=== PATIENT | male | born 2000 | race Two or more races ===

== ENCOUNTER 2023-06-30 04:27 | Emergency (ER) | payer MEDICAID, SELFPAY ==
--- NOTE | 2023-06-30 | ECG_ITS ---
Test Reason : CHEST PAIN Blood Pressure : / mmHG Vent. Rate : 097 BPM Atrial Rate : 097 BPM P-R Int : 134 ms QRS Dur : 090 ms QT Int : 352 ms P-R-T Axes : 050 039 015 degrees QTc Int : 447 ms Normal sinus rhythm with sinus arrhythmia Normal ECG No previous ECGs available Referred By: Generic ED Physician Electronically Signed By:HAYDER WOODARD
--- NOTE | ~2023-06-30 | XR_ITS ---
EXAMINATION: XR CHEST CLINICAL INFORMATION: Chest discomfort, shortness of breath COMPARISON: None available. TECHNIQUE: 2 views of the chest were obtained. FINDINGS: The lungs are clear with no focal consolidation. No evidence of pneumothorax, pulmonary edema, or pleural effusions. The cardiomediastinal silhouette is unremarkable. No acute osseous findings. XR/XR chest 2V IMPRESSION: No acute cardiopulmonary findings.
[2023-06-30 04:33] VITALS: BP 129/82; PULSE 86; RESP 20; TEMP 37.1; O2SAT 100; BMI 25.8
--- NOTE | 2023-06-30 04:41 | PC.NURSE ---
In radiology for chest xray at this time. Patient & Mother state that he stutters at baseline, but it gets worse when he is anxious.
--- NOTE | 2023-06-30 04:49 | MHC.EDTECH ---
Patient changed into hospital attire,placed on the playground monitor,family at bedside and call garcia in reach
--- NOTE | 2023-06-30 05:02 | MHC.EDTECH ---
Labs,sars/flu/rsv obatiend and sent to lab.
[2023-06-30 05:03] LABS: MANUAL DIFF FLAG NO
[2023-06-30 05:04] LABS: Basophils Percent Auto 0.3 % (0-2); Eosinophils Absolute Auto 0.1 X10*3/uL (0.0-0.4); Eosinophils Percent Auto 1.1 % (0-4); Hematocrit 43.9 % (42.0-52.0); Hemoglobin 15.9 g/dl (14.0-18.0); Imm Gran Abs Auto 0.02 X10*3/uL (0.00-0.03); Imm Gran Pct Auto 0.2 % (0.0-0.4); Lymphocytes Absolute Auto 2.4 X10*3/uL (1.2-4.9); Lymphocytes Percent Auto 26.3 % (20-40); Mean Corpuscular HGB Conc 36.2 g/dl (31.0-36.0); Mean Corpuscular Hemoglobin 31.5 pg (27.0-33.0); Mean Corpuscular Volume 86.9 fL (80.0-98.0); Mean Platelet Volume 12.1 fL (9.4-12.4); Monocytes Absolute Auto 0.6 X10*3/uL (0.1-1.2); Monocytes Percent Auto 6.3 % (2-11); Neutrophils Absolute Auto 5.9 x10*3/uL (2.0-8.3); Neutrophils Percent Auto 65.8 % (45-73); Platelet Count 215 X10*3/uL (160-400); Red Blood Count 5.05 X10*6/uL (4.60-5.80)
[2023-06-30 05:24] LABS: Anion Gap 14 (12-20); Blood Urea Nitrogen 11 mg/dL (9-16); Calcium 9.9 mg/dL (8.4-10.2); Carbon Dioxide 22 mmol/L (22-29); Chloride 107 mmol/L (96-108); Creatinine Clr Calc Pharmacy 107.5; Estimated Glomerular Filt Rate > 60; Glucose Random 107 mg/dL (60-115); Potassium 2.9 mmol/L (3.3-5.1); Sodium 140 mmol/L (135-145)
--- NOTE | 2023-06-30 05:24 | PC.NURSE ---
Telephone call received from lab with critical level of potassium 2.9. Dr. Cook notified.
[2023-06-30 05:26] LABS: Troponin-I High Sensitivity < 2.7 ng/L (<3.5-35.0)
[2023-06-30 05:40] LABS: Influenza A PCR NEGATIVE (Negative); Influenza B PCR NEGATIVE (Negative); Resp Syncy Virus RNA Qual PCR NEGATIVE (Negative); SARS COV2 PCR INHOUSE NEGATIVE (Negative)
[2023-06-30] MEDS: Potassium Chloride Packet 20 MEQ PACKET 40 MEQ PO (05:46)
[2023-06-30 05:56] VITALS: BP 122/77; PULSE 80; RESP 16; TEMP 36.8; O2SAT 98
--- NOTE | 2023-06-30 06:50 | ED.SOB ---
HPI - SOB/Dyspnea General Chief Complaint: Dyspnea Stated Complaint: chest pain, sob, lungs hurt Time Seen by Provider: 06/30/23 06:50 Source: patient and family Mode of arrival: ambulatory Limitations: no limitations History of Present Illness HPI Narrative: 23 yo male with no known medical history here with complaints of episodes of shortness of breath, chest tightness since 06/25. Patient reports these episodes occur at rest and with movement and are not worsened with deep breathing, palpation, coughing. He has no associated cough, fever, leg swelling, leg pain, vomiting, diarrhea. No recent travel. No sick contact. Patient reports feeling very anxious, having associated palpitations. Can not recall any specific stressors. He reports he does have a history of anxiety but does not currently taking any medication for this. He does not have a therapist. Denies any SI or HI. Mom is bedside and she denies any family history of sudden cardiac or coronary artery disease. He does smoke cigarettes and vapes. Reports occasional alcohol use. No substance use. Related Data Previous Rx's ?Medication ?Instructions ?Recorded hydroxyzine HCl 25 mg tablet 25 mg PO QID PRN anxiety #20 tabs 06/30/23 potassium chloride 20 mEq 20 meq PO DAILY #7 tabs 06/30/23 tablet,extended release Allergies Allergy/AdvReac Type Severity Reaction Status Date / Time cat dander [cats] Allergy Sneezing Verified 06/30/23 04:37 dog dander [dogs] Allergy Sneezing Verified 06/30/23 04:37 Review of Systems Review of Systems: Yes all other systems are reviewed and are negative Constitutional: Constitutional: Reports no additional constitutional complaints, Denies body ache(s), Denies chills, Denies fever(s), Denies headache(s) and Denies weakness Eyes: Eyes: Reports no additional eye complaints and Denies change in vision ENT: Reports system reviewed and no additional complaints, except as documented, Denies dizziness, Denies headache(s), Denies nasal congestion, Denies nasal discharge and Denies neck pain Cardiovascular: Cardiovascular: Reports no additional cardiovascular complaints, Reports chest pain, Denies leg edema, Reports palpitations and Reports dyspnea Respiratory: Respiratory: Reports no additional respiratory complaints, Denies cough and Reports dyspnea Gastrointestinal: Gastrointestinal: Reports no additional gastrointestinal complaints, Denies abdominal pain, Denies diarrhea, Denies nausea and Denies vomiting Genitourinary: Genitourinary: Denies urinary incontinence Musculoskeletal: Musculoskeletal: Reports no additional musculoskeletal complaints, Denies back pain, Denies arthralgias, Denies joint swelling, Denies neck pain, Denies numbness and Denies tingling Integumentary/Breasts: Skin/Breast: Reports system reviewed and no additional complaints, except as docu and Denies rash Neurologic: Reports system reviewed and no additional complaints, except as documented, Denies Abnormal speech present, Denies dizziness, Denies headache(s), Denies numbness, Denies tingling and Denies weakness Psychiatric: Psychiatric: Reports anxiety Endocrine: Endocrine: Reports palpitations PMFSH Past Medical History Attestation statement: The following information was validated with the patient. Source: old records reviewed and nursing notes reviewed Social History Social History Alcohol intake: current Alcohol type: beer, wine and hard liquor Smoked in Last 30 Days: No Use of substances other than those prescribed or required for medical reasons: No Advance Directives: No Advance Directives Information Provided: No Physical Exam Vital Signs: Vital Signs: Last Vital Signs Temp 98.3 F 06/30/23 09:12 Pulse 70 06/30/23 09:12 Resp 20 06/30/23 09:12 BP 105/69 06/30/23 09:12 Pulse Ox 97 06/30/23 09:12 O2 Del Method Room Air 06/30/23 09:12 BMI result Body Mass Index 25.8 Const: General: cooperative, healthy appearing, comfortable and no acute distress Orientation/consciousness: patient oriented x3 Limitations: no limitations HEENT: Head: Yes normal to inspection Ears: hearing grossly normal bilaterally General nose exam: Normal external nose present Face and sinus: Yes normal facial exam Mouth: Normal oral and palatal mucosa present Throat: Yes posterior oropharynx normal Eyes: General: appearance normal, both eyes and all related structures Pupils: Equal, round and reactive pupils present Neck: Neck: Yes normal visual inspection Chest: Chest palpation & inspection: normal inspection of the chest Resp: Effort & Inspection: normal respiratory effort Auscultation: clear to auscultation bilaterally Cardio: Rate: regular rate Rhythm: regular rhythm Peripheral pulses: Peripheral pulses 2+ throughout GI: Inspection: Yes normal to inspection Palpation (GI): Soft to palpation and nontender Auscultation: normal bowel sounds Back/Spine/Pelvis: Thoracic/Lumbar Spine: thoracic and lumbar spine normal to inspection Skin: General skin exam: no rashes or lesions noted Neuro: General: patient oriented x3, no focal motor deficits and normal sensation to monofilament Cranial nerves: Yes Equal, round and reactive pupils present Cognition (Neuro): normal cognition Speech: No Abnormal speech present Gait exam (Neuro): Normal gait present Motor exam (neuro): 5/5 motor strength present throughout Extrem: General: Yes normal to inspection, Yes no pedal edema and Yes no calf tenderness Course Course Course Narrative: Repeat labs are improved. Patient feels improved overall. Plan for discharge home with outpatient follow-up. Reviewed worrisome signs and symptoms when to return to the emergency room. Comfortable plan for discharge home Medications Administered Discontinued Medications Generic Name Dose Route Start Last Admin Trade Name Freq PRN Reason Stop Dose Admin Hydroxyzine HCl 50 mg 06/30/23 07:02 06/30/23 07:32 Hydroxyzine Hcl 50 Mg Tablet PO 06/30/23 07:03 50 mg ONCE ONE Administration Sodium Chloride 1,000 mls @ 999 mls/hr 06/30/23 07:02 06/30/23 09:14 Ns IV 06/30/23 08:02 Infused .Q1H1M STA Infusion Potassium Chloride 10 meq in 100 mls @ 100 mls/hr 06/30/23 07:02 06/30/23 08:38 Potassium Chloride/H20 IV 06/30/23 08:01 Infused ONCE ONE Infusion Potassium Chloride 40 meq 06/30/23 05:34 06/30/23 05:46 Potassium Chloride Packet 20 Meq Packet PO 06/30/23 05:35 40 meq ONCE ONE Administration Medical Decision Making Medical Decision Making MDM Narrative: 23 yo male with no known medical history here with complaints of episodes of shortness of breath, chest tightness since 06/25.? Patient reports these episodes occur at rest and with movement and are not worsened with deep breathing, palpation, coughing.? He has no associated cough, fever, leg swelling, leg pain, vomiting, diarrhea.? No recent travel.? No sick contact.? Patient reports feeling very anxious, having associated palpitations.? Can not recall any specific stressors.? He reports he does have a history of anxiety but does not currently taking any medication for this.? He does not have a therapist.? Denies any SI or HI.? Mom is bedside and she denies any family history of sudden cardiac or coronary artery disease. He does smoke cigarettes and vapes.? Reports occasional alcohol use.? No substance use. Exam is benign although patient appears quite anxious VSS WIll obtain labs, EKG, CXR, viral testing Give PO atarax Differential Diagnosis Differential Diagnoses: The differential diagnosis associated with the presentation includes Low suspicion for PE with perc score 0 Low suspicion for ACS with symptoms for several days with nonischemic EKG and negative troponin Low suspicion for aortic dissection with gradual onset of symptoms. Admission/Observation Consideration of admission/observation: Escalation of care including admission/observation considered Heart score 0-no need for admission for further management Lab Data MDM Lab Attestation statement: I reviewed the patient's lab results. 06/30/23 04:56 06/30/23 09:11 Labs: Lab Results 06/30/23 06/30/23 06/30/23 Range/Units 04:55 04:56 09:11 WBC 9.0 (4.8-10.8) X10*3/uL RBC 5.05 (4.60-5.80) X10*6/uL Hgb 15.9 (14.0-18.0) g/dl Hct 43.9 (42.0-52.0) % MCV 86.9 (80.0-98.0) fL MCH 31.5 (27.0-33.0) pg MCHC 36.2 H (31.0-36.0) g/dl RDW 12.0 (11.0-16.0) % Plt Count 215 (160-400) X10*3/uL MPV 12.1 (9.4-12.4) fL Immature Gran % (Auto) 0.2 (0.0-0.4) % Neut % (Auto) 65.8 (45-73) % Lymph % (Auto) 26.3 (20-40) % Flagler % (Auto) 6.3 (2-11) % Eos % (Auto) 1.1 (0-4) % Baso % (Auto) 0.3 (0-2) % Lymph # (Auto) 2.4 (1.2-4.9) X10*3/uL Flagler # (Auto) 0.6 (0.1-1.2) X10*3/uL Eos # (Auto) 0.1 (0.0-0.4) X10*3/uL Baso # (Auto) 0.0 (0.0-0.2) X10*3/uL Abs Immat Gran (auto) 0.02 (0.00-0.03) X10*3/uL Absolute Neuts (auto) 5.9 (2.0-8.3) x10*3/uL Absolute Nucleated RBC 0.000 (0.0-0.012) X10*3/uL Nucleated RBC % (auto) 0.0 (0.0-0.2) /100WBC Sodium 140 143 (135-145) mmol/L Potassium 2.9 L* 3.4 (3.3-5.1) mmol/L Chloride 107 113 H (96-108) mmol/L Carbon Dioxide 22 23 (22-29) mmol/L Anion Gap 14 10 L (12-20) BUN 11 9 (9-16) mg/dL Creatinine 0.98 0.80 (0.5-1.4) mg/dL Estim Creat Clear Calc 107.5 131.8 Estimated GFR > 60 > 60 Random Glucose 107 95 (60-115) mg/dL Calcium 9.9 8.6 D (8.4-10.2) mg/dL Magnesium 1.6 (1.6-2.6) mg/dL Total Bilirubin 0.6 (0.0-1.0) mg/dL Direct Bilirubin 0.2 (0.0-0.5) mg/dL AST 17 (5-37) U/L ALT 17 (0-40) U/L Alkaline Phosphatase 71 (39-117) U/L Troponin I High Sens < 2.7 (<3.5-35.0) ng/L Total Protein 7.8 (6.5-8.0) g/dL Albumin 4.7 (3.5-5.0) g/dL TSH 4.20 H (0.32-4.0) uIU/mL Free T4 1.12 (0.71-1.85) ng/dL Influenza Type A (PCR) NEGATIVE (Negative) Influenza Type B (PCR) NEGATIVE (Negative) RSV RNA Qual (PCR) NEGATIVE (Negative) SARS-CoV-2 RNA (RT-PCR) NEGATIVE (Negative) Independent Interpretation I performed an independent interpretation of an: EKG and Plain X-Ray Interpretation: I independently reviewed the chest x-ray and agree with the radiology report Independently reviewed the EKG which shows normal sinus rhythm. Normal OR. Normal QRS normal QT Radiology Impression Discussion of test interpretation with radiology: I have reviewed the radiologist's reading. Radiologist Impression: [address] [address] XRay Report Signed Patient: Dileep Villalpando MR#: [id number] : 2000 Acct:[id number] Age/Sex: 23 / M ADM Date: 06/30/23 Loc: .ED Attending Dr: Ordering Physician: Generic ED Physician Date of Service: 06/30/23 Procedure(s): XR chest 2V Accession Number(s): [id number] cc: Generic ED Physician; Physician,Unknown ~ EXAMINATION: XR CHEST CLINICAL INFORMATION: Chest discomfort, shortness of breath COMPARISON: None available. TECHNIQUE: 2 views of the chest were obtained. FINDINGS: The lungs are clear with no focal consolidation. No evidence of pneumothorax, pulmonary edema, or pleural effusions. The cardiomediastinal silhouette is unremarkable. No acute osseous findings. XR/XR chest 2V IMPRESSION: No acute cardiopulmonary findings. Independent Historian Clinical information obtained from an independent historian. History obtained from or confirmed by: Parent Discharge Plan Discharge Clinical Impression: Chest pain, Acute hypokalemia Patient Disposition: Home, Self-Care Instructions: Chest Pain (ED), Hypokalemia (ED) Additional Instructions: Your lab work shows that your potassium was mildly decreased. You did receive replacement both by mouth and through your IV for this. Your repeat levels were normal. Your additional blood work was normal. Your EKG is normal. Your chest x-ray is normal. We do recommend that he follow up outpatient with primary care doctor as you may need additional testing done. Please return for any worsening symptoms. Prescriptions: New potassium chloride 20 mEq tablet extended release 20 meq PO DAILY Qty: 7 0RF hydroxyzine HCl 25 mg tablet 25 mg PO QID PRN (Reason: anxiety) Qty: 20 0RF Referrals: Physician,Unknown J [Primary Care Provider] - 1 week Print Language: Kinyarwanda
[2023-06-30 07:22] LABS: Alanine Aminotransferase 17 U/L (0-40); Albumin Level 4.7 g/dL (3.5-5.0); Alkaline Phosphatase 71 U/L (39-117); Aspartate Amino Transferase 17 U/L (5-37); Bilirubin Direct 0.2 mg/dL (0.0-0.5); Bilirubin Total 0.6 mg/dL (0.0-1.0); Magnesium 1.6 mg/dL (1.6-2.6); Total Protein 7.8 g/dL (6.5-8.0)
[2023-06-30] MEDS: 0.9 % Sodium Chloride 1,000 ML 999 ML IV (07:29)
[2023-06-30] MEDS: hydrOXYzine HCL 50 MG TABLET PO (07:32)
[2023-06-30] MEDS: Potassium Chloride/H20 10 MEQ/100 ML PIGGYBACK 100 MEQ IV (07:32)
[2023-06-30 08:08] VITALS: BP 119/71; PULSE 81; RESP 26; TEMP 36.7; O2SAT 100
[2023-06-30 08:47] LABS: Free T4 (Free Thyroxine) 1.12 ng/dL (0.71-1.85)
--- NOTE | 2023-06-30 09:02 | PC.NURSE ---
assumed care of pt at 0700, resting quietly, 1L NS running, IV potassium given, plan for repeat labs after fluids. tech aware. pt reports feeling slightly better.
[2023-06-30 09:12] VITALS: BP 105/69; PULSE 70; RESP 20; TEMP 36.8; O2SAT 97
[2023-06-30 09:35] LABS: Anion Gap 10 (12-20); Blood Urea Nitrogen 9 mg/dL (9-16); Calcium 8.6 mg/dL (8.4-10.2); Carbon Dioxide 23 mmol/L (22-29); Chloride 113 mmol/L (96-108); Creatinine Clr Calc Pharmacy 131.8; Estimated Glomerular Filt Rate > 60; Glucose Random 95 mg/dL (60-115); Potassium 3.4 mmol/L (3.3-5.1); Sodium 143 mmol/L (135-145)
[2023-06-30 09:55] VITALS: BP 105/69; PULSE 70; RESP 20; TEMP 36.8; O2SAT 97
== END 2023-06-30 09:55 | disposition home or self-care (01) ==
PROVIDERS: Emergency Medicine Emergency Medical Services; Nurse Practitioner Family; Emergency Provider Emergency Medicine
DX: R07.89 Other chest pain (principal); E87.6 Hypokalemia; R06.02 Shortness of breath; R07.81 Pleurodynia; R11.0 Nausea; Z11.52 Encounter for screening for COVID-19; Z20.822 Contact with and (suspected) exposure to COVID-19; Z79.899 Other long term (current) drug therapy
CPT/HCPCS: 0241U; 36415; 71046; 80048; 80076; 83735; 84439; 84443; 84484; 85025; 93005; 96361; 96374; 99284; 99285; J3480

== ENCOUNTER → 2023-06-30 04:29 | Outpatient (BNV) | payer MEDICAID, SELFPAY | PROVIDERS: Emergency Provider Emergency Medicine; Visit Provider Internal Medicine | DX: R07.9 Chest pain, unspecified (principal) | CPT/HCPCS: 93010 ==

== ENCOUNTER 2024-01-27 17:40 | Outpatient (REF) | payer MEDICAID, SELFPAY ==
[2024-01-28 06:18] LABS: CT PCR NOT DETECTED (Not Detect.); NG PCR NOT DETECTED (Not Detect.)
== END 2024-01-27 17:41 | disposition home or self-care (01) ==
LOC: HO.HHCLNP 17:40
PROVIDERS: Visit Provider Nurse Practitioner Family
DX: Z00.00 Encounter for general adult medical examination without abnormal findings (principal)
CPT/HCPCS: 87491; 87591

== ENCOUNTER 2024-09-18 18:11 | Emergency (ER) | payer MEDICAID, SELFPAY ==
--- NOTE | ~2024-09-18 | XR_ITS ---
CLINICAL HISTORY: shortness of breath 2 view chest x-ray Comparison: Chest x-ray from 06/30/2023 Findings: No consolidation or effusion. No pneumothorax. Imaged mediastinum and imaged osseous structures appear unchanged. IMPRESSION: No consolidation. This document has been electronically signed by: Mike Palafox MD on 09/18/2024 19:58:17
[2024-09-18 18:25] VITALS: BP 116/63; PULSE 80; RESP 16; TEMP 36.3; O2SAT 100; BMI 25.1
--- NOTE | 2024-09-18 18:37 | ED_ITS ---
HPI - General Adult General Chief complaint: Upper Respiratory Symptoms Stated complaint: difficulty breathing Time Seen by Provider: 09/18/24 20:10 Source: patient, family and RN notes reviewed Mode of arrival: ambulatory Limitations: no limitations History of Present Illness ED Provider: Alejandra CASTRO narrative: 24-year-old male with past medical history significant for anxiety noncompliant with Zoloft presents for evaluation of shortness of breath. Patient reports his symptoms got worse yesterday. He reports waking up yesterday morning with shortness of breath in the middle of the night. He reports that he wants to be for a little while to come himself down because he reported feeling anxious as well. Denies any fevers, chills, cough. He reports some tightness in his chest with deep breathing. He has been treating in anxiety was overall in the past but stopped a few months ago as she was feeling better Related Data Previous Rx's ?Medication ?Instructions ?Recorded hydroxyzine HCl 25 mg tablet 25 mg PO QID PRN anxiety #20 tabs 06/30/23 potassium chloride 20 mEq 20 meq PO DAILY #7 tabs 06/10 04/03 tablet,extended release Allergies Allergy/AdvReac Type Severity Reaction Status Date / Time cat dander (cats) Allergy Sneezing Verified 09/18/24 18:29 dog dander (dogs) Allergy Sneezing Verified 09/18/24 18:29 Review of Systems Constitutional: Constitutional: Denies body ache(s), Denies chills and Denies fever(s) Eyes: Eyes: Denies blurry vision ENT: Denies vertigo, Denies dizziness and Denies dry mouth Cardiovascular: Cardiovascular: Denies chest pain and Reports dyspnea Respiratory: Respiratory: Denies change in phlegm color, Denies chest congestion, Denies cough, Denies hemoptysis, Denies excessive phlegm production, Reports pain on inspiration, Reports dyspnea and Denies wheezing Gastrointestinal: Gastrointestinal: Denies abdominal pain Musculoskeletal: Musculoskeletal: Denies back pain Integumentary/Breasts: Skin/Breast: Denies rash Neurologic: Denies vertigo and Denies dizziness Psychiatric: Psychiatric: Reports anxiety, Denies depression, Denies homicidal ideation and Denies suicidal ideation Allergic/Immunologic: Allergic/Immunologic: Denies wheezing PMFSH Social History Social History Alcohol intake: current Alcohol type: beer, wine and hard liquor Advance Directives: No Advance Directives Information Provided: No Do you have a plan to hurt others: No Plan Physical Exam ED Vital Signs: Vital Signs - 24 hr 09/18/24 18:25 Temperature 97.4 F Pulse Rate 80 Respiratory Rate 16 Blood Pressure 116/63 Pulse Oximetry 100 Oxygen Delivery Method Room Air BMI result Body Mass Index 25.1 Const General: healthy appearing, comfortable, no acute distress, alert and awake Nutritional Appearance: well nourished Orientation/consciousness: patient oriented x3 HENMT Head: Yes normocephalic and Yes atraumatic Eyes Eyelids: Yes eyelids normal Conjunctivae: conjunctivae normal Sclerae: sclerae normal Corneas: corneas normal Pupils: Equal, round and reactive pupils present EOM: EOMs intact bilaterally Neck Neck: Yes full ROM Resp Effort & Inspection: normal respiratory effort, able to speak in complete sentences, no audible wheezes and not labored Auscultation: clear to auscultation bilaterally Cardio Rate: regular rate Rhythm: regular rhythm GI Inspection: No distended Palpation (GI): Soft to palpation, not firm, nontender, no guarding and not rigid Skin General skin exam: elasticity normal Neuro General: patient oriented x3 Cranial nerves: Yes Equal, round and reactive pupils present and Yes Bilaterally intact EOM present Cognition (Neuro): normal cognition Extrem Other: Moving all extremities well without any obvious deformities Course Course Course Narrative: RME, this is a rapid medical exam performed by Salvador Roberts please refer to primary provider for complete H&P- 24-year-old male presents for evaluation of shortness of breath. Symptoms started last night. He endorses some mild chest tightness. Plan for viral testing and a chest x-ray Medical Decision Making Medical Decision Making MDM Narrative: 24-year-old male with a past medical history significant for anxiety presents for evaluation of shortness of breath that woke him up from sleep. His symptoms have been episodic, reports feeling associated shortness of breath as well. He denies any fevers, chills, cough, this is less likely an infectious process. He is young and otherwise healthy, doubt cardiac disease, no leg swelling. He is PERC negative. His symptoms are most consistent with anxiety. Chest x-ray is clear, viral swabs negative. We will treat with hydroxyzine p.r.n., I discussed with his mother and him that he should consider speaking in his primary doctor and restarting a daily anxiety medication if his symptoms persist. I did warn him he should not restart Zoloft without talking to his primary doctor Differential Diagnosis Differential Diagnoses: The differential diagnosis associated with the presentation includes Anxiety Depression Upper respiratory infection Allergies Lab Data Labs: Lab Results 09/18/24 Range/Units 18:45 Influenza Type A (PCR) NEGATIVE (Negative) Influenza Type B (PCR) NEGATIVE (Negative) RSV RNA Qual (PCR) NEGATIVE (Negative) SARS-CoV-2 RNA (RT-PCR) NEGATIVE (Negative) Independent Interpretation I performed an independent interpretation of an: Plain X-Ray Interpretation: No infiltrates or effusions Radiology Impression Discussion of test interpretation with radiology: I have reviewed the radiologist's reading. Radiologist Impression: Findings: No consolidation or effusion. No pneumothorax. Imaged mediastinum and imaged osseous structures appear unchanged. IMPRESSION: No consolidation. This document has been electronically signed by: Mike Palafox MD on 09/18/2024 19:58:17 Discharge Plan Discharge Clinical Impression: Breath, shortness Patient Disposition: Home, Self-Care Instructions: Anxiety (ED) Additional Instructions: Your chest x-ray today was clear. You tested negative for COVID, influenza, RSV. You may use hydroxyzine as needed for anxiety, as I do feel that anxiety is the cause of your shortness of breath. If your symptoms persist you may wish to discuss with your primary doctor about returning to a daily medication for anxiety such as Zoloft Follow-up with your primary doctor, return for new or worsening symptoms Prescriptions: No Action potassium chloride 20 mEq tablet extended release 20 meq PO DAILY Qty: 7 0RF hydroxyzine HCl 25 mg tablet 25 mg PO QID PRN (Reason: anxiety) Qty: 20 0RF Print Language: Czech
[2024-09-18 19:29] LABS: Resp Syncy Virus RNA Qual PCR NEGATIVE (Negative); SARS COV2 PCR INHOUSE NEGATIVE (Negative)
[2024-09-18 20:29] VITALS: BP 113/75; PULSE 78; RESP 16; TEMP 37.2; O2SAT 100
[2024-09-18 20:31] VITALS: BP 113/75; PULSE 78; RESP 16; TEMP 37.2; O2SAT 100
== END 2024-09-18 20:32 | disposition home or self-care (01) ==
PROVIDERS: Physician Assistant; Emergency Provider Emergency Medicine
DX: R06.02 Shortness of breath (principal); F41.9 Anxiety disorder, unspecified; Z91.148 Patient's other noncompliance with medication regimen for other reason; Z03.818 Encounter for observation for suspected exposure to other biological agents ruled out
CPT/HCPCS: 71046; 87637; 99283; 99284

== ENCOUNTER → 2024-09-18 18:37 | Outpatient (BNV) | payer MEDICAID, SELFPAY | PROVIDERS: Visit Provider Radiology Neuroradiology | DX: R06.02 Shortness of breath (principal) | CPT/HCPCS: 71046 ==